=== PATIENT | male | born 1960 | race Caucasian/White ===

== ENCOUNTER 2019-11-04 15:32 | Emergency (ER) | payer OTHER ==
[~2019-11-04] VITALS: Ht 177.8 cm; Wt 74.8 kg
[~2019-11-04 15:32] MED LIST: LOSARTAN HCT
[2019-11-04] MEDS ORDERED: ATORVASTATIN CA10 MG (15:47)
[2019-11-04] MEDS ORDERED: ARICEPT5 MG (15:47)
== END 2019-11-04 20:51 | disposition home or self-care (01) ==
LOC: ER 15:32
DX: N39.0 Urinary tract infection, site not specified (principal); R30.0 Dysuria

== ENCOUNTER → 2019-11-08 16:51 | Outpatient (CLI) | payer OTHER ==
[~2019-11-08 16:51] MED LIST changes: +ARICEPT5 MG; +ATORVASTATIN CA10 MG
== END | disposition home or self-care (01) ==
LOC: LAB 16:51
DX: R31.0 Gross hematuria (principal)

== ENCOUNTER 2019-11-20 10:12 | Outpatient (CLI) | payer OTHER | END 2019-11-20 10:14 | disposition home or self-care (01) | LOC: RAD 10:12 | DX: I10 Essential (primary) hypertension (principal) ==

== ENCOUNTER 2019-11-26 11:38 | Inpatient (IN) | payer OTHER ==
[~2019-11-26] VITALS: Ht 180.3 cm; Wt 73.9 kg
[2019-11-26] MEDS ORDERED: COZAAR100 MG PO (12:09)
[2019-11-29] MEDS ORDERED: ATORVASTATIN CA20 MG PO (08:02)
[2019-11-29] MEDS ORDERED: LOSARTAN-HCTZ1 EAC2 (08:02)
[2019-11-29] MEDS ORDERED: FINASTERIDE5 MG (08:02)
== END 2019-11-30 08:20 | disposition home or self-care (01) | DRG 713 ==
LOC: SURH 11-28 07:00 → O/R 11-28 09:49 → CIR.AMB 11-28 11:26 → EDSTATUS 11-28 11:36 → SURH 11-28 11:38 → SURG 11-28 17:10 → O/R 11-28 17:41 → SURG 11-28 17:47 → SURH 11-28 18:19
PROVIDERS: ADMIT Urology
PROC: 0VT08ZZ Resection of Prostate, Via Natural or Artificial Opening Endoscopic (ICD-10-PCS; principal; 2019-11-28 07:00)
DX: N40.1 Benign prostatic hyperplasia with lower urinary tract symptoms (principal); N39.0 Urinary tract infection, site not specified; R33.8 Other retention of urine; I10 Essential (primary) hypertension

== ENCOUNTER → 2024-12-18 | Emergency (ER) | payer OTHER ==
[~2024-12-18] VITALS: Ht 177.8 cm; Wt 74.8 kg
[~2024-12-18] MED LIST changes: +ATORVASTATIN CA20 MG PO; +COZAAR100 MG PO; +DEXAMETHASONE SODIUM PHOSPHATE 4 MG/ML VIAL IM STA; +FAMOTIDINE/PF 20 MG/2 ML VIAL ONE; +FINASTERIDE5 MG; +KETOROLAC TROMETHAMINE 60 MG VIAL IM STA; +LOSARTAN-HCTZ1 EAC2; +METOCLOPRAMIDE HCL 5 MG/ML VIAL ONE
== END | disposition home or self-care (01) ==
LOC: ER 03:05
DX: M54.50 Low back pain, unspecified (principal); Z91.041 Radiographic dye allergy status
CPT/HCPCS: 72100; 96372; 99283; J1100; J1885

== ENCOUNTER 2024-12-20 08:54 | Emergency (ER) | payer OTHER ==
[~2024-12-20] VITALS: Ht 177.8 cm; Wt 79.4 kg
[~2024-12-20 08:54] MED LIST changes: -DEXAMETHASONE SODIUM PHOSPHATE 4 MG/ML VIAL IM STA; -FAMOTIDINE/PF 20 MG/2 ML VIAL ONE; -KETOROLAC TROMETHAMINE 60 MG VIAL IM STA; -METOCLOPRAMIDE HCL 5 MG/ML VIAL ONE
[2024-12-20] MEDS ORDERED: FAMOTIDINE/PF 20 MG in 0.9 % SODIUM CHLORIDE 8 ML IV PUSH STA (09:37)
[2024-12-20] MEDS ORDERED: METOCLOPRAMIDE HCL 10 MG in DEXTROSE 5 % IN WATER 50 ML IV ONE (09:45)
== END 2024-12-20 11:11 | disposition home or self-care (01) ==
LOC: ER 08:57
DX: R06.6 Hiccough (principal); I10 Essential (primary) hypertension; Z91.041 Radiographic dye allergy status; Z20.822 Contact with and (suspected) exposure to COVID-19
CPT/HCPCS: 36415; 96365; 99282; J2765; J3490